=== PATIENT | male | born 1955 | race African-American/Black ===

== ENCOUNTER 2019-09-14 14:23 | Emergency (ER) | payer MEDICAID ==
[~2019-09-14] VITALS: Ht 185.4 cm; Wt 88.0 kg
[~2019-09-14 14:23] MED LIST: HYDR12.529 PO; LIDO700A30 TP
[2019-09-14 17:15] VITALS: BP 123/61
== END 2019-09-14 18:44 | disposition home or self-care (01) ==
LOC: ER 14:23
DX: K14.9 Disease of tongue, unspecified (principal); Z85.46 Personal history of malignant neoplasm of prostate; Z85.71 Personal history of Hodgkin lymphoma; Z90.79 Acquired absence of other genital organ(s)
CPT/HCPCS: 99282

== ENCOUNTER 2023-02-17 14:18 | Emergency (ER) | payer MEDICARE, MEDICAID ==
[~2023-02-17] VITALS: Ht 185.4 cm; Wt 89.5 kg
[2023-02-17 14:33] VITALS: O2SAT 98
[2023-02-17] MEDS ORDERED: BACITRACIN ZINC OINT UDPKT TOP ONE (15:15)
[2023-02-17] MEDS ORDERED: LIDOCAINE HCL/PF 1% 10 MG/ML 5ML VIAL INFIL ONE (15:15)
[2023-02-17] MEDS ORDERED: TETANUS, DIPHTHERIA, PERTUSSIS VAC/PF 0.5ML (>10YR OLD) IM ONE (15:15)
[2023-02-17] MEDS ORDERED: NEOM1PAC6 TP (16:13)
[2023-02-17 16:41] VITALS: BP 118/63; PULSE 62; RESP 18; TEMP 98.1
== END 2023-02-17 16:44 | disposition home or self-care (01) ==
LOC: ER 14:18
DX: S51.811A Laceration without foreign body of right forearm, initial encounter (principal); I10 Essential (primary) hypertension; W19.XXXA Unspecified fall, initial encounter; Y93.89 Activity, other specified; Y92.89 Other specified places as the place of occurrence of the external cause; Y99.8 Other external cause status
CPT/HCPCS: 99283; 73090; 90715; 12004; 90471; J3490

== ENCOUNTER 2023-02-21 12:41 | Emergency (ER) | payer MEDICARE, MEDICAID ==
[~2023-02-21] VITALS: Ht 185.4 cm; Wt 89.0 kg
[~2023-02-21 12:41] MED LIST changes: +NEOM1PAC6 TP
[2023-02-21] MEDS ORDERED: IBUP-1523 MT (16:08)
[2023-02-21] MEDS ORDERED: DICL500C MT (16:08)
[2023-02-21 16:32] VITALS: BP 111/64
== END 2023-02-21 16:33 | disposition home or self-care (01) ==
LOC: ER 12:41
DX: S51.811D Laceration without foreign body of right forearm, subsequent encounter (principal); I10 Essential (primary) hypertension; M19.90 Unspecified osteoarthritis, unspecified site; J45.909 Unspecified asthma, uncomplicated; W45.8XXD Other foreign body or object entering through skin, subsequent encounter
CPT/HCPCS: 99283

== ENCOUNTER 2023-03-03 14:37 | Emergency (ER) | payer MEDICARE, MEDICAID ==
[~2023-03-03] VITALS: Ht 276.9 cm; Wt 89.0 kg
[~2023-03-03 14:37] MED LIST changes: +DICL500C MT; +IBUP-1523 MT
[2023-03-03 16:08] VITALS: BP 128/54; PULSE 43; RESP 18; TEMP 97.6; O2SAT 98
== END 2023-03-03 20:23 | disposition home or self-care (01) ==
LOC: ER 14:39
DX: Z48.02 Encounter for removal of sutures (principal); I10 Essential (primary) hypertension; J45.909 Unspecified asthma, uncomplicated
CPT/HCPCS: 99281